=== PATIENT | male | born 1960 | race Caucasian/White ===

== ENCOUNTER → 2019-05-19 | Outpatient (CLI) | payer OTHER | LOC: COL.RAD 09:28 | DX: Z01.812 Encounter for preprocedural laboratory examination (principal); C80.1 Malignant (primary) neoplasm, unspecified | CPT/HCPCS: A9585 ==

== ENCOUNTER 2019-07-31 12:56 | Day surgery (SDC) | payer OTHER ==
[~2019-07-31] VITALS: Ht 182.9 cm; Wt 91.7 kg
[2019-07-31] MEDS ORDERED: REQUIP 0.5MG0.5 MG PO (13:36)
[2019-07-31] MEDS ORDERED: NORCO 325 MG-51 TAB PO ×3 (13:36→17:39)
[2019-07-31] MEDS ORDERED: CELEXA40 MG PO (13:37)
[2019-07-31] MEDS ORDERED: CELEBREX 200MG200 MG PO (13:37)
[2019-07-31] MEDS ORDERED: ZYLOPRIM 300MG300 MG PO (13:37)
[2019-07-31] MEDS ORDERED: GLUCOPHAGE500 MG/TAB PO (13:38)
[2019-07-31] MEDS ORDERED: CRESTOR20 MG PO (13:38)
[2019-07-31] MEDS ORDERED: MIRALAX119G PO (13:39)
[2019-07-31] MEDS ORDERED: NICORETTE4 MG PO (13:40)
[2019-07-31] MEDS ORDERED: WESTCORT 0.2% C15 GM TP (13:41)
[2019-07-31] MEDS ORDERED: GENTIAN VIOLET TP (13:41)
[2019-07-31 13:42] VITALS: BP 131/82; PULSE 73; TEMP 97.7
[2019-07-31] MEDS ORDERED: MULTIPLE VITAMI1 CAP PO (13:42)
[2019-07-31] MEDS ORDERED: TYLENOL 325MG325 MG PO (13:42)
--- NOTE | 2019-07-31 13:47 | NUR ---
TO RM AT 1308- CALL LIGHT IN REACH AT BEDSIDE.
--- NOTE | 2019-07-31 16:22 | NUR ---
PATIENT RESTING QUIETLY
[2019-07-31 17:45] VITALS: BP 116/64; PULSE 77; TEMP 98.1
[2019-07-31 18:00] VITALS: BP 112/66; PULSE 75
[2019-07-31 18:15] VITALS: BP 118/74; PULSE 78; TEMP 98.1
--- NOTE | 2019-07-31 18:15 | NUR ---
Patient to room 349 post PAC placement. Incision site with dressing CDI. PAC accessed. Requests food and ambulation. No c/o at this time.
--- NOTE | 2019-07-31 18:56 | NUR ---
Discharge instructions reviewed with patient and spouse, verbalized understanding. Discharged via wheelchair to auto/home with spouse at 1855.
== END 2019-07-31 18:55 | disposition home or self-care (01) ==
LOC: SDCO 12:56 → SURG 17:37 → SDCO 18:55 → SURG 08-01 09:59
DX: C34.91 Malignant neoplasm of unspecified part of right bronchus or lung (principal); C79.9 Secondary malignant neoplasm of unspecified site; Z79.899 Other long term (current) drug therapy; G25.81 Restless legs syndrome; F17.290 Nicotine dependence, other tobacco product, uncomplicated; Z88.2 Allergy status to sulfonamides; E11.9 Type 2 diabetes mellitus without complications; Z79.84 Long term (current) use of oral hypoglycemic drugs; E78.00 Pure hypercholesterolemia, unspecified
CPT/HCPCS: OP; C1788; J1644; J2250; J2310; J2704; J3010; J7120

== ENCOUNTER 2020-01-30 15:00 | Observation (INO) | payer OTHER ==
[~2020-01-30] VITALS: Ht 188 cm; Wt 91.2 kg
[~2020-01-30 15:00] MED LIST: CELEBREX 200MG200 MG PO; CELEXA40 MG PO; CRESTOR20 MG PO; GENTIAN VIOLET TP; GLUCOPHAGE500 MG/TAB PO; MIRALAX119G PO; MULTIPLE VITAMI1 CAP PO; NICORETTE4 MG PO; NORCO 325 MG-51 TAB PO; REQUIP 0.5MG0.5 MG PO; TYLENOL 325MG325 MG PO; WESTCORT 0.2% C15 GM TP; ZYLOPRIM 300MG300 MG PO
--- NOTE | 2020-01-30 15:15 | NUR ---
Patient to room 357 by stretcher from [place]. EMS[facility]2 and nurse transferred the patient to the bed. Patient alert and partially oriented. VSS. BP hypotensive. IV CDI, fluid to gravity. Nurse oriented patient to room, call light and bed. Patient given some water and waiting on the doctors to visit with patient. No further needs expressed from the patient. Call light within reach. Bed alarm on
[2020-01-30 15:20] VITALS: BP 93/65; PULSE 94; TEMP 97.3
--- NOTE | 2020-01-30 16:48 | NUR ---
I met with patient after Dr Sweet had talked with him. Pt does not seem clear as to why he is here or what he is supposed to be doing. He reports his knows more about his health issues but doesn't want us to call her. He is bothered with abdominal pain to point he cannot sit up even for short period to allow his lung sounds to be assessed. He is unsure when his last treatment was for his cancer. I did review with him what a pleurx was, how it is used but at the end of this he reports he doesn't want any tubes. Dr Fuentes is here now to talk with pt and try to clarify goals of care. Dr Fuentes advises that he has multiple brain mets. Will continue to follow along. Pt states that he is not wanting hospice services at this time--wants to keep fighting but I am not sure how clearly he is thinking at this time.
--- NOTE | 2020-01-30 17:56 | NUR ---
Patient resting in bed. Patient given pain medication, patient reporting pain all over body. Patient on comfort care and the nurse called and spoke with the . Port to right upper chest CDI. INT RT AC CDI. Patient instructed to call nursing staff for assistance as needed. Call light within reach. Bed alarm on
[2020-01-30 19:46] VITALS: BP 97/62; PULSE 117; TEMP 98.3
--- NOTE | 2020-01-30 23:00 | NUR ---
Pt assessment completed, charted. Frequent position change and cleaned him. Pt does not want to wear a gown or use blanket, pt is lying on bed. Pt complained of pain, PRN pain meds, morphine given. Reassessed the pt after 30 minutes, pt stated that the pain has gone down. Call light on reach, No any further needs.
--- NOTE | 2020-01-31 05:29 | NUR ---
Pt slept through out the night. Changed and positioned. No further needs at this time.
--- NOTE | 2020-01-31 07:15 | NUR ---
Report with BROCK Payne. Pt resting in bed, denies needs.
[2020-01-31 07:36] VITALS: BP 114/61; PULSE 74; TEMP 98.4
--- NOTE | 2020-01-31 10:04 | NUR ---
Pt resting in bed, intermittently flinching and groaning, denies pain when asked but ultrasound pending. PRN pain medication being administered to help with discomfort during testing.
--- NOTE | 2020-01-31 10:43 | NUR ---
Production Broacher and Maki, Palliative RN contacted patient's , Gay (ph#[phone]) who is on her way to the hospital now. Patient was transferred from [facility] on comfort care. Gay reports that the plan for discharge is to return home on hospice. Gay states she has already been in contact with [facility] and they just need to know when patient discharges. Patient will need EMS transport home. Patient was transferred from [facility] to have a pleurx drain placed. Maki provided information and education about drain placement. Gay wants patient to have some relief if possible and does not want him to be in pain. Gay states she knows things "are bad" with patient. Following this phone call, ARYA collaborated with BROCK Gambino and BROCK Jordan who advised patient scheduled to have drain placed around 1400 but it may be closer to 1500. ARYA contacted [facility] who could admit today depending on the time. BROCK Gamboa at [facility] advised that she would need to coordinate with Gay about arranging furniture so that needed equipment could be brought in. ARYA provided tentative time for drain placement to Cooper. ARYA will continue to follow.
--- NOTE | 2020-01-31 11:02 | NUR ---
New Scopolamine patch placed behind left ear d/t previous patch off and not sticking. PRN pain medication administered d/t pt still flinching and grimacing intermittently and US will be in room in approx 5 minutes.
--- NOTE | 2020-01-31 11:03 | NUR ---
Phone call placed to this morning along with social media coordinator to talk about pleurx drain placement in abdomen, pro and cons, and not expected to be done until at least this afternoon. states she would like to have the fluid drained if possible. She reports he has never had fluid drained before. Her daughter had recommended a pleurx drain placement. Radiologist will review disc provided from [facility] and may do mini abdominal sono earlier to verify that drainage is appropriate and if pleurx drain could be placed. is now here on the unit and states her biggest goal is to keep him comfortable and to let him be at home. This information was shared with Dr Tamayo and radiology nurse, Fanta.
[2020-01-31] MEDS ORDERED: ROXANOL 20MG20 MG/ML SL (13:45)
[2020-01-31] MEDS ORDERED: ATIVAN 1MG T1 MG/TAB PO (13:46)
[2020-01-31] MEDS ORDERED: TRANSDERM-0.5 MG/21 TD (13:46)
[2020-01-31] MEDS ORDERED: ZOFRAN 4MG T4 MG/TAB PO (13:47)
--- NOTE | 2020-01-31 14:35 | NUR ---
Message relayed to Dr Tamayo that daughter has requested a call about why abdominal swelling has occured without a lot of fluid. Dr Tamayo will call her when he can. has left to go home and will plan for discharge at 1530 from here by EMS.
--- NOTE | 2020-01-31 15:23 | NUR ---
PAC in right chest deaccessed after flushing. IV discontinued from right AC with tip intact. PRN pain medication administered to prepare pt for ride home.
--- NOTE | 2020-01-31 15:40 | NUR ---
Pt discharged home with hospice in place, transport via [facility]. Pt's discharge paperwork with EMS staff.
--- NOTE | 2020-01-31 17:10 | NUR ---
Regulatory Submissions Associate attended clinical rounds with the team. Patient will not have pleurx drain placed and can discharge home. ARYA coordinated with Cooper at [facility] who advised they can admit today. ARYA scheduled EMS transport with [facility] for 1530. ARYA provided transport time to patient's and to [facility]. EMS requested patient's sign ABN. ARYA presented ABN to patient's who verbalized understanding and provided signature. ARYA obtained Hospitalist signature on EMS forms and placed forms on chart. ARYA faxed discharge orders to [facility]. ARYA faxed medications to [facility] in [place]. No additional needs at this time.
== END 2020-01-31 15:40 | disposition hospice, home (50) ==
LOC: MEDICAL 15:00
PROVIDERS: ADMIT Hospitalist
DX: C34.90 Malignant neoplasm of unspecified part of unspecified bronchus or lung (principal); Z88.2 Allergy status to sulfonamides; Z79.84 Long term (current) use of oral hypoglycemic drugs; Z79.891 Long term (current) use of opiate analgesic; Z87.891 Personal history of nicotine dependence; G25.81 Restless legs syndrome
CPT/HCPCS: 99239; G0378